=== PATIENT | female | born 1990 | race Caucasian/White ===

== ENCOUNTER → 2017-10-20 | Outpatient (CLI) | payer OTHER ==
[~2017-10-20] MED LIST: /LAMO10TA OR; ABIL10TA OR; ABIL5TAB; ABIL5TAB OR; ACET500T2; ALBU83IN; BCP; CELE20TA OR; CELE40TA OR; CONC18TA OR; DEPA250T3; EFFE75CA75 OR; FLUO10TA2; KLS75TAB; LAMI25TA; LAMI25TA OR; METHYLPHENIDATE 10 MG; PROSAC; PROV90AE; PROZ10CA OR; PROZ20CA; RITA10TA OR; RITA20TA; RITA20TA OR; TOPI25TA2 OR; TRAZ100T OR; TRAZ100T2 PO; TRAZ150T OR; TRAZ50TA; ZITH250T
--- NOTE | 2017-10-20 16:39 | REP ---
BILATERAL MAMMOGRAM WITH BILATERAL BREAST ULTRASOUND: The patient has a history of bilateral breast pain and multiple areas of lumpiness. There is no family history of breast cancer. There are no prior studies for comparison. MLO and CC views of both breasts demonstrate mild symmetrical fibroglandular tissue. There is no evidence of mass, architectural distortion or clustered microcalcifications. Real-time sonographic evaluation of bilateral breasts performed in the areas of lumpiness. There are scattered fibroglandular tissue with no evidence of a cystic or solid nodule sonographically. IMPRESSION: ACR 2 benign. There is no mass or clustered microcalcifications. There is no mammographic evidence of a nodule bilaterally. BI-RADS/ACR category 2 mammogram. Benign finding(s). Routine annual screening mammography (for women over age 40). This mammogram was interpreted with the aid of an FDA-approved computer-aided detection system. The patient states she/he had a clinical breast exam in October 2017. The patient letter being requested is M2. Signed by Fidel Iniguez MD 10/21/2017 04:53 P
== END ==
LOC: M RAD 12:02
PROVIDERS: ATTEND Nurse Practitioner Adult Health
DX: R92.8 Other abnormal and inconclusive findings on diagnostic imaging of breast (principal); N64.4 Mastodynia; N63.10 Unspecified lump in the right breast, unspecified quadrant; N63.20 Unspecified lump in the left breast, unspecified quadrant
CPT/HCPCS: 76642; G0204

== ENCOUNTER 2018-03-03 12:39 | Emergency (ER) | payer OTHER ==
[2018-03-03 13:16] LABS: APPEARANCE, URINE CLOUDY (CLEAR); BACTERIA, URINE AUTO 1+ (NEGATIVE); BILIRUBIN, URINE AUTO NEGATIVE (NEGATIVE); BLOOD, URINE BLOOD NEGATIVE (NEGATIVE); COLOR, URINE AMBER (YELLOW); GLUCOSE, URINE (UA) AUTO NEGATIVE (NEGATIVE); KETONE, URINE AUTO TRACE mg/dL (NEGATIVE); LEUKOCYTE ESTERASE, URINE AUTO TRACE (NEGATIVE); MUCUS, URINE SMALL (NEGATIVE); NITRITE, URINE AUTO NEGATIVE (NEGATIVE); PROTEIN, URINE AUTO 1+ mg/dL (NEGATIVE); RBC, URINE AUTO 0 /HPF (0-3); SPECIFIC GRAVITY URINE AUTO 1.023 (1.002-1.035); SQUAMOUS EPITHELIAL CELL UR AU 29 /HPF (0-6); WBC, URINE AUTO 7 /HPF (0-3)
[2018-03-03] MEDS: GASTROGRAFIN SOLUTION 30ML (Q9963) PO ×2 (13:41→14:17)
[2018-03-03] MEDS: KETOROLAC 30 MG/ML VIAL (J1885) IV (13:41)
[2018-03-03 13:53] LABS: BASO # 0.1 10^3/uL (0.0-0.2); BASO % 0.8 % (0.0-1.0); EOS # 0.3 10^3/uL (0.0-0.50); EOS % 2.9 % (0.0-3.0); HEMATOCRIT 46.4 % (36.0-47.0); HEMOGLOBIN 15.7 g/dl (12.0-15.5); IMMATURE GRANULOCYTE % 0.7 % (0-3.0); LYMPH # 2.3 10^3/uL (1.5-6.5); LYMPH % 20.8 % (24.0-44.0); MEAN CORPUSCULAR HEMOGLOBIN 28.8 pg (27.0-33.0); MEAN CORPUSCULAR HGB CONC 33.8 g/dl (32.0-36.5); MONO # 0.9 10^3/uL (0.0-0.8); MONO % 8.4 % (0.0-5.0); NEUTROPHILS # 7.2 10^3/uL (1.8-7.7); NEUTROPHILS % 66.4 % (36.0-66.0); PLATELET COUNT, AUTOMATED 284 10^3/uL (150-450); RED BLOOD COUNT 5.46 10^6/uL (4.00-5.40); RED CELL DISTRIBUTION WIDTH 13.4 % (11.5-14.5); WHITE BLOOD COUNT 10.9 10^3/uL (4.0-10.0)
[2018-03-03 13:58] LABS: POS COUNT POS FLAG
[2018-03-03 14:10] LABS: ALBUMIN 4.3 GM/DL (3.2-5.2); ALBUMIN/GLOBULIN RATIO 1.13 (1.00-1.93); ALKALINE PHOSPHATASE 109 U/L (45-117); ALT/SGPT 18 U/L (12-78); AMYLASE 36 U/L (25-115); ANION GAP 5 MEQ/L (8-16); AST/SGOT 14 U/L (7-37); BILIRUBIN,DIRECT < 0.1 MG/DL (0.0-0.2); BILIRUBIN,TOTAL 0.5 MG/DL (0.2-1.0); BLOOD UREA NITROGEN 6 MG/DL (7-18); C REACTIVE PROTEIN QUANTITATIV 0.37 MG/DL (0.00-0.30); CARBON DIOXIDE LEVEL 23 MEQ/L (21-32); CHLORIDE LEVEL 111 MEQ/L (98-107); CREATININE FOR GFR 0.84 MG/DL (0.55-1.30); GLOMERULAR FILTRATION RATE > 60.0 (>60); GLUCOSE, FASTING 87 MG/DL (70-100); LIPASE 73 U/L (73-393); POTASSIUM SERUM 3.9 MEQ/L (3.5-5.1); SODIUM LEVEL 139 MEQ/L (136-145); TOTAL PROTEIN 8.1 GM/DL (6.4-8.2)
[2018-03-03 14:33] LABS: ERYTHROCYTE SEDIMENTATION RATE 1 mm/hr (0-20)
[2018-03-03] MEDS ORDERED: ISOVUE-370 76% 100ML VIAL (Q9967) As Ordered (14:41)
[2018-03-03] MEDS: ONDANSETRON 4MG/2ML VIAL (J2405) IV (15:46)
[2018-03-03] MEDS: cefTRIAXone SOD 1 GM in D5W MINI-BAG PLUS 50 ML IV (16:21)
== END 2018-03-03 17:50 | disposition home or self-care (01) ==
LOC: M ED 12:39
DX: N70.11 Chronic salpingitis (principal); J45.909 Unspecified asthma, uncomplicated; E03.9 Hypothyroidism, unspecified; F31.9 Bipolar disorder, unspecified; F43.10 Post-traumatic stress disorder, unspecified; F90.9 Attention-deficit hyperactivity disorder, unspecified type; F42.9 Obsessive-compulsive disorder, unspecified; F17.200 Nicotine dependence, unspecified, uncomplicated; Z79.899 Other long term (current) drug therapy; Z88.1 Allergy status to other antibiotic agents; Z88.8 Allergy status to other drugs, medicaments and biological substances; Z91.040 Latex allergy status; Z88.0 Allergy status to penicillin; Z98.890 Other specified postprocedural states; Z87.42 Personal history of other diseases of the female genital tract; Z87.19 Personal history of other diseases of the digestive system
CPT/HCPCS: Q9963

== ENCOUNTER 2018-10-23 14:12 | Emergency (ER) | payer OTHER | END 2018-10-23 16:21 | disposition home or self-care (01) | LOC: M ED 14:12 | DX: J02.0 Streptococcal pharyngitis (principal); J45.909 Unspecified asthma, uncomplicated; E03.9 Hypothyroidism, unspecified; F31.9 Bipolar disorder, unspecified; F43.10 Post-traumatic stress disorder, unspecified; F90.9 Attention-deficit hyperactivity disorder, unspecified type; F17.210 Nicotine dependence, cigarettes, uncomplicated; Z88.0 Allergy status to penicillin; Z88.1 Allergy status to other antibiotic agents; Z88.8 Allergy status to other drugs, medicaments and biological substances | CPT/HCPCS: 87880 ==

== ENCOUNTER 2018-11-18 20:39 | Emergency (ER) | payer OTHER ==
[~2018-11-18] VITALS: Ht 149.9 cm; Wt 55.5 kg
[2018-11-18 20:39] VITALS: BP 108/65
[~2018-11-18 20:39] MED LIST changes: +APAP500T10 PO; +AZIT-12 PO; +DOXY-350 PO; +FLUO40CA PO; +HYDR50TA70 PO; +IBUP80TA PO; +MAGICMW SS; +MOTR200T44 PO; +PERC5TAB12 PO; +TIZA2TA PO; +TYLE325C PO; +VITA50005 PO; +ZONI100C2 PO
[2018-11-18 22:01] LABS: BASO # 0.1 10^3/uL (0.0-0.2); BASO % 1.1 % (0.0-1.0); EOS # 0.6 10^3/uL (0.0-0.50); EOS % 6.2 % (0.0-3.0); HEMATOCRIT 48.9 % (36.0-47.0); LYMPH # 2.7 10^3/uL (1.5-6.5); LYMPH % 26.4 % (24.0-44.0); MEAN CORPUSCULAR HEMOGLOBIN 27.9 pg (27.0-33.0); MEAN CORPUSCULAR HGB CONC 32.7 g/dl (32.0-36.5); MEAN CORPUSCULAR VOLUME 85.3 fl (80.0-96.0); MONO # 0.8 10^3/uL (0.0-0.8); MONO % 8.1 % (0.0-5.0); NEUTROPHILS % 57.8 % (36.0-66.0); PLATELET COUNT, AUTOMATED 323 10^3/uL (150-450); RED BLOOD COUNT 5.73 10^6/uL (4.00-5.40); WHITE BLOOD COUNT 10.4 10^3/uL (4.0-10.0)
[2018-11-18 22:21] LABS: HCG, SERUM QUALITATIVE NEGATIVE (NEGATIVE)
[2018-11-18 22:30] LABS: ALBUMIN 3.9 GM/DL (3.2-5.2); ALT/SGPT 115 U/L (12-78); BILIRUBIN,DIRECT 0.2 MG/DL (0.0-0.2); BILIRUBIN,TOTAL 0.5 MG/DL (0.2-1.0); BLOOD UREA NITROGEN 8 MG/DL (7-18); CARBON DIOXIDE LEVEL 31 MEQ/L (21-32); CHLORIDE LEVEL 98 MEQ/L (98-107); CREATININE FOR GFR 0.75 MG/DL (0.55-1.30); GLOMERULAR FILTRATION RATE > 60.0 (>60); GLUCOSE, FASTING 78 MG/DL (70-100); SODIUM LEVEL 138 MEQ/L (136-145); TOTAL PROTEIN 7.6 GM/DL (6.4-8.2)
[2018-11-20 11:00] LABS: HEPATITIS B SURFACE ANTIBODY POSITIVE (POSITIVE)
[2018-11-20 11:11] LABS: HEPATITIS B SURFACE ANTIGEN NEGATIVE (NEGATIVE)
[2018-11-20 11:39] LABS: HIV 1&2 SCREEN CENTAUR NEGATIVE (NEGATIVE)
[2018-11-20 12:00] LABS: HEPATITIS C VIRUS ABY INDEX > 11.0 INDEX (<0.8)
== END 2018-11-18 23:37 | disposition home or self-care (01) ==
LOC: M ED 20:39
DX: Z20.5 Contact with and (suspected) exposure to viral hepatitis (principal); R79.89 Other specified abnormal findings of blood chemistry; F17.210 Nicotine dependence, cigarettes, uncomplicated; F19.10 Other psychoactive substance abuse, uncomplicated; F31.9 Bipolar disorder, unspecified; F43.10 Post-traumatic stress disorder, unspecified; F98.8 Other specified behavioral and emotional disorders with onset usually occurring in childhood and adolescence; F42.9 Obsessive-compulsive disorder, unspecified; Z88.1 Allergy status to other antibiotic agents; Z88.0 Allergy status to penicillin; Z88.8 Allergy status to other drugs, medicaments and biological substances; Z91.040 Latex allergy status

== ENCOUNTER 2019-02-22 15:31 | Emergency (ER) | payer OTHER ==
[~2019-02-22] VITALS: Ht 149.9 cm; Wt 56.0 kg
[2019-02-22 15:31] VITALS: BP 112/60
[~2019-02-22 15:31] MED LIST changes: -/LAMO10TA OR; +LAMI1TAB7 OR
[2019-02-22] MEDS ORDERED: IBUP-1022 PO (16:08)
[2019-02-22] MEDS ORDERED: DOXY100C37 PO (16:08)
[2019-02-22] MEDS ORDERED: CIPR0.3S AD (16:08)
== END 2019-02-22 16:21 | disposition home or self-care (01) ==
LOC: M ED 15:31
DX: H60.91 Unspecified otitis externa, right ear (principal); Z88.0 Allergy status to penicillin; Z88.1 Allergy status to other antibiotic agents; Z88.8 Allergy status to other drugs, medicaments and biological substances; Z91.040 Latex allergy status; F17.210 Nicotine dependence, cigarettes, uncomplicated

== ENCOUNTER 2019-02-26 17:51 | Emergency (ER) | payer OTHER ==
[~2019-02-26] VITALS: Ht 149.9 cm; Wt 54.5 kg
[~2019-02-26 17:51] MED LIST changes: +CIPR0.3S AD; +DOXY100C37 PO; +IBUP-1022 PO
[2019-02-26] MEDS ORDERED: NS 1,000 ML IV ONE (18:45)
[2019-02-26 19:12] LABS: BASO # 0.1 10^3/uL (0.0-0.2); BASO % 0.9 % (0.0-1.0); EOS # 0.3 10^3/uL (0.0-0.50); EOS % 2.5 % (0.0-3.0); HEMATOCRIT 42.5 % (36.0-47.0); HEMOGLOBIN 13.7 g/dl (12.0-15.5); LYMPH # 2.5 10^3/uL (1.5-6.5); LYMPH % 21.7 % (24.0-44.0); MEAN CORPUSCULAR HEMOGLOBIN 28.5 pg (27.0-33.0); MEAN CORPUSCULAR HGB CONC 32.2 g/dl (32.0-36.5); MEAN CORPUSCULAR VOLUME 88.5 fl (80.0-96.0); MONO # 1.1 10^3/uL (0.0-0.8); MONO % 9.6 % (0.0-5.0); NEUTROPHILS # 7.5 10^3/uL (1.8-7.7); NEUTROPHILS % 64.9 % (36.0-66.0); PLATELET COUNT, AUTOMATED 335 10^3/uL (150-450); WHITE BLOOD COUNT 11.5 10^3/uL (4.0-10.0)
[2019-02-26 19:35] LABS: HCG, SERUM QUALITATIVE NEGATIVE (NEGATIVE)
[2019-02-26 19:40] LABS: ALBUMIN 3.8 GM/DL (3.2-5.2); ALT/SGPT 85 U/L (12-78); BILIRUBIN,TOTAL 0.6 MG/DL (0.2-1.0); BLOOD UREA NITROGEN 13 MG/DL (7-18); CALCIUM LEVEL 9.1 MG/DL (8.5-10.1); CARBON DIOXIDE LEVEL 29 MEQ/L (21-32); CHLORIDE LEVEL 108 MEQ/L (98-107); CREATININE FOR GFR 0.79 MG/DL (0.55-1.30); GLOMERULAR FILTRATION RATE > 60.0 (>60); GLUCOSE, FASTING 93 MG/DL (70-100); POTASSIUM SERUM 4.3 MEQ/L (3.5-5.1); SODIUM LEVEL 140 MEQ/L (136-145)
--- NOTE | 2019-02-26 19:47 | REP ---
CHEST: Two views. There is no evidence of acute infiltrate. No pleural effusion is seen. The heart is normal in size. The mediastinal silhouette is unremarkable. The visualized osseous structures are intact. IMPRESSION: No acute pulmonary disease. Electronically Signed by Fidel Iniguez MD 02/28/2019 09:59 A
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
[2019-02-26 21:57] VITALS: BP 132/85
== END 2019-02-26 21:59 | disposition home or self-care (01) ==
LOC: M ED 17:51
DX: T74.11XA Adult physical abuse, confirmed, initial encounter (principal); T14.8XXA Other injury of unspecified body region, initial encounter; Y07.03 Male partner, perpetrator of maltreatment and neglect; Y92.098 Other place in other non-institutional residence as the place of occurrence of the external cause; N83.201 Unspecified ovarian cyst, right side; B19.20 Unspecified viral hepatitis C without hepatic coma; F17.210 Nicotine dependence, cigarettes, uncomplicated; Z88.1 Allergy status to other antibiotic agents; Z88.8 Allergy status to other drugs, medicaments and biological substances; Z88.0 Allergy status to penicillin; Z91.040 Latex allergy status; Z79.2 Long term (current) use of antibiotics

== ENCOUNTER 2019-06-03 14:48 | Emergency (ER) | payer OTHER ==
[~2019-06-03] VITALS: Ht 149.9 cm; Wt 53.7 kg
[2019-06-03 14:49] VITALS: BP 114/59
[2019-06-03] MEDS ORDERED: ACETAMINOPHEN 325 MG TAB PO ONE (15:15)
[2019-06-03] MEDS ORDERED: PENI500T PO (15:20)
== END 2019-06-03 16:30 | disposition home or self-care (01) ==
LOC: M ED 14:48
DX: J02.9 Acute pharyngitis, unspecified (principal); F17.210 Nicotine dependence, cigarettes, uncomplicated; Z88.0 Allergy status to penicillin; Z88.1 Allergy status to other antibiotic agents; Z88.8 Allergy status to other drugs, medicaments and biological substances; Z91.040 Latex allergy status

== ENCOUNTER → 2023-03-30 | Outpatient (CLI) | payer OTHER ==
[~2023-03-30] MED LIST changes: -CIPR0.3S AD; +CIPR0.3S37 AD; -DOXY-350 PO; +DOXY-443 PO; +DOXY-444 PO; -DOXY100C37 PO; +PENI500T PO; -ZONI100C2 PO; +ZONI100C67 PO
== END ==
LOC: M WHC 13:19
PROVIDERS: ATTEND Physician Assistant
DX: N64.4 Mastodynia (principal); N63.20 Unspecified lump in the left breast, unspecified quadrant; N63.10 Unspecified lump in the right breast, unspecified quadrant

== ENCOUNTER 2023-07-11 10:40 | Emergency (ER) | payer OTHER ==
[2023-07-11] MEDS ORDERED: MIRT1TAB15 (11:11)
[2023-07-11] MEDS ORDERED: ARIP10TA32 (11:11)
[2023-07-11] MEDS ORDERED: FLUO20CA22 (11:11)
[2023-07-11] MEDS ORDERED: LAMO100T3 (11:11)
[2023-07-11] MEDS ORDERED: PRAZ1CAP (11:11)
[2023-07-11 13:10] LABS: BASO # 0.2 10^3/uL (0.0-0.2); BASO % 1.3 % (0.0-1.0); EOS # 0.6 10^3/uL (0.0-0.5); EOS % 5.4 % (0.0-3.0); HEMATOCRIT 47.5 % (36.0-47.0); HEMOGLOBIN 15.3 g/dl (12.0-15.5); LYMPH # 2.2 10^3/uL (1.5-5.0); LYMPH % 18.8 % (24.0-44.0); MEAN CORPUSCULAR HEMOGLOBIN 28.3 pg (27.0-33.0); MEAN CORPUSCULAR HGB CONC 32.2 g/dl (32.0-36.5); MEAN CORPUSCULAR VOLUME 87.8 fl (80.0-96.0); MONO # 0.8 10^3/uL (0.0-0.8); MONO % 7.1 % (2.0-8.0); NEUTROPHILS # 7.7 10^3/uL (1.5-8.5); NEUTROPHILS % 66.7 % (36.0-66.0); PLATELET COUNT, AUTOMATED 288 10^3/uL (150-450); RED BLOOD COUNT 5.41 10^6/uL (4.00-5.40); WHITE BLOOD COUNT 11.5 10^3/uL (4.0-10.0)
[2023-07-11 13:39] LABS: ERYTHROCYTE SEDIMENTATION RATE 11 mm/hr (0-20)
[2023-07-11 13:48] LABS: ALBUMIN 3.7 G/DL (3.2-5.2); ALKALINE PHOSPHATASE 130 U/L (46-116); ALT/SGPT 26 U/L (7.0-40); AST/SGOT 21 U/L (<34); BILIRUBIN,DIRECT 0.1 MG/DL (<0.4); BILIRUBIN,TOTAL 0.4 MG/DL (0.3-1.2); BLOOD UREA NITROGEN 5 MG/DL (9-23); CALCIUM LEVEL 9.3 MG/DL (8.5-10.1); CARBON DIOXIDE LEVEL 31 MMOL/L (20-31); CHLORIDE LEVEL 104 MMOL/L (98-107); CREATININE FOR GFR 0.74 MG/DL (0.55-1.30); GLOMERULAR FILTRATION RATE > 60.0 (>60); GLUCOSE, FASTING 88 MG/DL (60-100); POTASSIUM SERUM 5.5 MMOL/L (3.5-5.1); SODIUM LEVEL 140 MMOL/L (136-145); TOTAL PROTEIN 7.1 G/DL (5.7-8.2)
[2023-07-11] MEDS ORDERED: CEPH500C PO (14:25)
[2023-07-11 14:41] VITALS: BP 110/80; TEMP 98.2; O2SAT 100
== END 2023-07-11 14:46 | disposition home or self-care (01) ==
LOC: M ED 10:40
DX: L03.116 Cellulitis of left lower limb (principal); E87.6 Hypokalemia; B19.20 Unspecified viral hepatitis C without hepatic coma; F17.200 Nicotine dependence, unspecified, uncomplicated; Z88.0 Allergy status to penicillin; Z88.1 Allergy status to other antibiotic agents; Z91.040 Latex allergy status; Z79.899 Other long term (current) drug therapy